=== PATIENT | male | born 1980 | race Caucasian/White ===

== ENCOUNTER → 2017-11-28 | Outpatient (CLI) | payer BC, OTHER ==
[~2017-11-28] MED LIST: ACETAMINOPHEN500 MG PO; IBUP400 PO; NEOPOLHCSU LEFTEAR
[2017-11-28 10:43] LABS: BASOPHILS ABSOLUTE AUTO 0.03 K/mm3 (0.00-0.23); BASOPHILS PERCENT AUTO 0 % (0-2); EOSINOPHILS PERCENT AUTO 3 % (0-6); Hematocrit 41.5 % (37.0-53.0); IMMATURE GRAN ABSOLUTE AUTO 0.02 K/mm3 (0.00-0.10); IMMATURE GRAN PERCENT AUTO 0 % (0-1); LYMPHOCYTES ABSOLUTE AUTO 2.34 K/mm3 (0.84-5.20); LYMPHOCYTES PERCENT AUTO 30 % (21-46); MONOCYTES ABSOLUTE AUTO 0.52 K/mm3 (0.16-1.47); MONOCYTES PERCENT AUTO 7 % (4-13); Mean Corpuscular HGB Conc 33.7 g/dL (31.5-36.5); Mean Corpuscular Volume 89 fL (80-100); Mean Platelet Volume 10.5 fL (9.1-12.4); NEUTROPHILS ABSOLUTE AUTO 4.68 K/mm3 (1.96-9.15); NEUTROPHILS PERCENT AUTO 60 % (41-73); Platelet Count 241 K/mm3 (150-400); Red Blood Cell Count 4.67 M/mm3 (4.30-5.90); White Blood Cell Count 7.79 K/mm3 (4.00-11.30)
[2017-11-28 11:15] LABS: Alanine Aminotransfer (ALT/SGP 31 U/L (12-78); Albumin, Blood 4.1 g/dL (3.4-5.0); Albumin/Globulin Ratio 1.2 (0.8-1.8); Alk Phos 56 U/L (40-126); Anion Gap 7 mmol/L (6-16); Aspartate Aminotrans (AST/SGOT 23 U/L (12-37); Bilirubin, Total 0.6 mg/dL (0.1-1.0); Blood Urea Nitrogen 13 mg/dL (8-24); Bun/Creatinine Ratio 14.9 (12.0-20.0); CO2, Blood 26 mmol/L (21-32); Calcium, Blood 8.7 mg/dL (8.5-10.1); Chloride, Blood 103 mmol/L (98-108); Creatinine, Blood 0.87 mg/dL (0.60-1.20); Globulin, Blood 3.5 g/dL (2.2-4.0); Glomerular Filtration Rate >60 (60-); Glucose, Blood 102 mg/dL (70-99); Potassium, Blood 4.3 mmol/L (3.5-5.5); Sodium, Blood 136 mmol/L (136-145); Total Protein, Blood 7.6 g/dL (6.4-8.2)
== END | disposition home or self-care (01) ==
LOC: LAB EV 10:40 → LAB SHORT 10:40
PROVIDERS: Physician Assistant Medical
DX: R10.84 Generalized abdominal pain (principal)
CPT/HCPCS: 80053; 85025

== ENCOUNTER 2018-07-17 06:08 | Day surgery (SDC) | payer OTHER, BC ==
[~2018-07-17] VITALS: Ht 172.7 cm; Wt 70.1 kg
[~2018-07-17 06:08] MED LIST changes: +CRUTCH4 XX; +IBUP100S; +Percocet 5-3251 EACH PO
--- NOTE | 2018-07-17 07:04 | NUR ---
History, Chart, Medications and Allergies reviewed before start of procedure. Patient States Post-Procedure ride home has been arranged.
[2018-07-17] MEDS ORDERED: IBUP600 PO (07:06)
--- NOTE | 2018-07-17 08:13 | NUR ---
07/17/18 0813 Noemi Adame ALL COUNTS CORRECT.
--- NOTE | 2018-07-17 09:32 | NUR ---
"DAY SURGERY RN | DISCHARGED Patient steady on feet. Discharge instructions given. RX given to patient. VSS. A/O. Denies pain and nausea. Eating crackers and drinking water without difficulty. Patient taken in wheelchair to front entrance by volunteer. is ride home. All belonings returned to patient."
== END 2018-07-17 22:38 | disposition home or self-care (01) ==
LOC: ORSCMMR 06:08 → ORD 07:30 → ORSCMMR 07:30
PROVIDERS: Orthopaedic Surgery
PROC: 0QPH04Z Removal of Internal Fixation Device from Left Tibia, Open Approach (ICD-10-PCS; principal; 2018-07-17 07:30)
DX: S82.142D Displaced bicondylar fracture of left tibia, subsequent encounter for closed fracture with routine healing (principal); F17.210 Nicotine dependence, cigarettes, uncomplicated
CPT/HCPCS: J0690; J1100; J1885; J2250; J2405; J3010; J7120

== ENCOUNTER 2020-02-25 15:13 | Inpatient (IN) | payer BC ==
[~2020-02-25] VITALS: Ht 175.3 cm; Wt 66.6 kg
[~2020-02-25 15:13] MED LIST changes: -HUMALOG KW100 UNIT/1 SC; -SEMGLEE PE100 UNIT/1 SC
[2020-02-25 15:35] LABS: Calcium, Ionized (POC) 1.11 mmol/L (1.10-1.46); Chloride (POC) 109 mmol/L (98-108); Creatinine (POC) 0.6 mg/dL (0.8-1.3); Glucose (ISTAT POC) 329 mg/dL (70-99); Hemoglobin (POC) 16.7 g/dL (13.5-17.5); Potassium (POC) 5.7 mmol/L (3.5-5.5); Sodium (POC) 136 mmol/L (135-148); Total CO2 (POC) 12 mmol/L (21-32)
[2020-02-25 15:43] LABS: Source, Urine Clean Catch
[2020-02-25 15:46] LABS: Base Excess Venous -21.1 mmol/L; Bicarbonate Venous 10.9 mmol/L (24.0-30.0); PCO2 Venous 27.2 mmHg (38-42); PO2 Venous 102 mmHg (38-42)
[2020-02-25 15:51] LABS: Appearance, Urine Clear (Clear); Bilirubin, Urine Neg (Neg); Blood, Urine 2+ (Neg); Glucose Qualitative, Urine 4+ (Neg); Ketones, Urine 4+ (Neg); Leukocyte Esterase, Urine Neg (Neg); Nitrite, Urine Neg (Neg); Protein, Urine 3+ (Neg); Specific Gravity, Urine 1.025 (1.003-1.022); Urobilinogen, Urine NORM (Normal)
[2020-02-25 15:52] LABS: BASOPHILS ABSOLUTE AUTO 0.03 K/mm3 (0.00-0.23); BASOPHILS PERCENT AUTO 0 % (0-2); EOSINOPHILS PERCENT AUTO 0 % (0-6); Hematocrit 49.4 % (37.0-53.0); Hemoglobin 15.7 g/dL (13.5-17.5); IMMATURE GRAN ABSOLUTE AUTO 0.05 K/mm3 (0.00-0.10); IMMATURE GRAN PERCENT AUTO 1 % (0-1); LYMPHOCYTES ABSOLUTE AUTO 1.09 K/mm3 (0.84-5.20); LYMPHOCYTES PERCENT AUTO 11 % (21-46); MONOCYTES ABSOLUTE AUTO 0.46 K/mm3 (0.16-1.47); MONOCYTES PERCENT AUTO 5 % (4-13); Mean Corpuscular HGB 29.8 pg (26.0-34.0); Mean Corpuscular HGB Conc 31.8 g/dL (31.5-36.5); Mean Corpuscular Volume 94 fL (80-100); Mean Platelet Volume 11.3 fL (9.1-12.4); NEUTROPHILS ABSOLUTE AUTO 7.98 K/mm3 (1.96-9.15); NEUTROPHILS PERCENT AUTO 83 % (41-73); Platelet Count 271 K/mm3 (150-400); RDW Coefficient Variation 12.5 % (11.7-14.2); RDW Standard Deviation 43.3 fL (35.1-46.3); Red Blood Cell Count 5.26 M/mm3 (4.30-5.90); White Blood Cell Count 9.61 K/mm3 (4.00-11.30)
[2020-02-25 16:09] LABS: Color, Urine Pale Yellow (P-Yellow)
[2020-02-25 16:13] LABS: White Blood Cells, Urine 0-2 /hpf (0-5)
[2020-02-25 16:14] LABS: Bacteria Few /hpf; Red Blood Cells, Urine 0-2 /hpf (0-2); Squamous Epithelial Cells Few /hpf (Few)
[2020-02-25 17:19] LABS: Alanine Aminotransfer (ALT/SGP 31 U/L (12-78); Albumin, Blood 4.3 g/dL (3.4-5.0); Alk Phos 74 U/L (50-136); Anion Gap 20 mmol/L (6-16); Aspartate Aminotrans (AST/SGOT 13 U/L (12-37); Bilirubin, Total 0.4 mg/dL (0.1-1.0); Blood Urea Nitrogen 15 mg/dL (8-24); Bun/Creatinine Ratio 22.9 (12.0-20.0); CO2, Blood 11 mmol/L (21-32); Chloride, Blood 109 mmol/L (98-108); Creatinine, Blood 0.66 mg/dL (0.60-1.20); Globulin, Blood 4.3 g/dL (2.2-4.0); Glomerular Filtration Rate >60 (60-); Glucose, Blood 289 mg/dL (70-99); Magnesium, Blood 1.9 mg/dL (1.6-2.4); Potassium, Blood 4.3 mmol/L (3.5-5.5); Sodium, Blood 140 mmol/L (136-145); Total Protein, Blood 8.6 g/dL (6.4-8.2)
[2020-02-25 17:39] LABS: Beta-hydroxybutyrate 82.6 mg/dL (0.2-2.8)
[2020-02-25 20:19] LABS: Anion Gap 12 mmol/L (6-16); Blood Urea Nitrogen 14 mg/dL (8-24); Bun/Creatinine Ratio 22.7 (12.0-20.0); CO2, Blood 19 mmol/L (21-32); Calcium, Blood 7.4 mg/dL (8.5-10.1); Chloride, Blood 113 mmol/L (98-108); Creatinine, Blood 0.62 mg/dL (0.60-1.20); Glomerular Filtration Rate >60 (60-); Glucose, Blood 210 mg/dL (70-99); Potassium, Blood 3.8 mmol/L (3.5-5.5); Sodium, Blood 144 mmol/L (136-145)
[2020-02-26 03:39] LABS: Anion Gap 6 mmol/L (6-16); Blood Urea Nitrogen 12 mg/dL (8-24); Bun/Creatinine Ratio 20.5 (12.0-20.0); CO2, Blood 24 mmol/L (21-32); Calcium, Blood 7.6 mg/dL (8.5-10.1); Chloride, Blood 112 mmol/L (98-108); Creatinine, Blood 0.59 mg/dL (0.60-1.20); Glomerular Filtration Rate >60 (60-); Glucose, Blood 136 mg/dL (70-99); Potassium, Blood 3.2 mmol/L (3.5-5.5); Sodium, Blood 142 mmol/L (136-145)
[2020-02-27] MEDS ORDERED: SEMGLEE PE100 UNIT/1 SC (12:49)
[2020-02-27] MEDS ORDERED: HUMALOG KW100 UNIT/1 SC (12:52)
== END 2020-02-27 16:28 | disposition home or self-care (01) | DRG 639 ==
LOC: ER 15:13 → ICUW 15:14 → ICUE 15:14 → MEDS 02-26 15:55
PROVIDERS: Emergency Medicine; ADMIT Internal Medicine
DX: E11.10 Type 2 diabetes mellitus with ketoacidosis without coma (principal)
CPT/HCPCS: 36415; 71045; 80047; 80048; 80053; 81001; 82010; 82803; 82947; 83036; 83735; 85014; 85025; 93306; 96372; 96374; 99285-25; A9270-GY; G0378; J1650; J1815; J3480; J7030; J7042; J7120

== ENCOUNTER → 2020-02-25 | Outpatient (CLI) | payer BC ==
[~2020-02-25] MED LIST changes: +HUMALOG KW100 UNIT/1 SC; +IBUP600 PO; +SEMGLEE PE100 UNIT/1 SC
[2020-02-25 14:17] LABS: BASOPHILS ABSOLUTE AUTO 0.03 K/mm3 (0.00-0.23); BASOPHILS PERCENT AUTO 0 % (0-2); EOSINOPHILS PERCENT AUTO 0 % (0-6); Hematocrit 47.7 % (37.0-53.0); Hemoglobin 16.2 g/dL (13.5-17.5); IMMATURE GRAN ABSOLUTE AUTO 0.07 K/mm3 (0.00-0.10); IMMATURE GRAN PERCENT AUTO 1 % (0-1); LYMPHOCYTES ABSOLUTE AUTO 0.87 K/mm3 (0.84-5.20); LYMPHOCYTES PERCENT AUTO 11 % (21-46); MONOCYTES ABSOLUTE AUTO 0.44 K/mm3 (0.16-1.47); MONOCYTES PERCENT AUTO 6 % (4-13); Mean Corpuscular HGB 30.4 pg (26.0-34.0); Mean Corpuscular Volume 90 fL (80-100); Mean Platelet Volume 10.9 fL (9.1-12.4); NEUTROPHILS ABSOLUTE AUTO 6.59 K/mm3 (1.96-9.15); NEUTROPHILS PERCENT AUTO 82 % (41-73); Platelet Count 274 K/mm3 (150-400); RDW Coefficient Variation 12.8 % (11.7-14.2); RDW Standard Deviation 41.5 fL (35.1-46.3); Red Blood Cell Count 5.33 M/mm3 (4.30-5.90)
[2020-02-25 14:27] LABS: Alanine Aminotransfer (ALT/SGP 31 U/L (12-78); Albumin, Blood 4.1 g/dL (3.4-5.0); Albumin/Globulin Ratio 1.1 (0.8-1.8); Alk Phos 67 U/L (40-126); Anion Gap 26 mmol/L (6-16); Aspartate Aminotrans (AST/SGOT 17 U/L (12-37); Bilirubin, Total 0.4 mg/dL (0.1-1.0); Blood Urea Nitrogen 18 mg/dL (8-24); Bun/Creatinine Ratio 16.4 (12.0-20.0); CO2, Blood 11 mmol/L (21-32); Calcium, Blood 7.9 mg/dL (8.5-10.1); Chloride, Blood 101 mmol/L (98-108); Globulin, Blood 3.8 g/dL (2.2-4.0); Glomerular Filtration Rate >60 (60-); Glucose, Blood 362 mg/dL (70-99); Sodium, Blood 138 mmol/L (136-145); Total Protein, Blood 7.9 g/dL (6.4-8.2)
== END ==
LOC: LAB EV 14:13 → LAB SHORT 14:13
PROVIDERS: Chiropractor
DX: R81 Glycosuria (principal)
CPT/HCPCS: 80053; 83036; 83690; 85025

== ENCOUNTER 2021-06-24 11:31 | Inpatient (IN) | payer OTHER ==
[~2021-06-24] VITALS: Ht 175.3 cm; Wt 56.5 kg
[~2021-06-24 11:31] MED LIST changes: +HUMALOG KW100 UNIT/1 SC; +SEMGLEE PE100 UNIT/1 SC
[2021-06-24 12:14] LABS: BASOPHILS PERCENT AUTO 1 % (0-2); EOSINOPHILS PERCENT AUTO 0 % (0-6); Hemoglobin 17.5 g/dL (13.5-17.5); IMMATURE GRAN ABSOLUTE AUTO 0.33 K/mm3 (0.00-0.10); IMMATURE GRAN PERCENT AUTO 2 % (0-1); LYMPHOCYTES ABSOLUTE AUTO 1.58 K/mm3 (0.84-5.20); LYMPHOCYTES PERCENT AUTO 9 % (21-46); MONOCYTES ABSOLUTE AUTO 0.88 K/mm3 (0.16-1.47); MONOCYTES PERCENT AUTO 5 % (4-13); Mean Corpuscular HGB 30.4 pg (26.0-34.0); Mean Corpuscular HGB Conc 31.3 g/dL (31.5-36.5); Mean Corpuscular Volume 97 fL (80-100); Mean Platelet Volume 10.4 fL (9.1-12.4); NEUTROPHILS ABSOLUTE AUTO 15.75 K/mm3 (1.96-9.15); NEUTROPHILS PERCENT AUTO 85 % (41-73); Platelet Count 350 K/mm3 (150-400); RDW Standard Deviation 43.3 fL (35.1-46.3); Red Blood Cell Count 5.75 M/mm3 (4.30-5.90); White Blood Cell Count 18.64 K/mm3 (4.00-11.30)
[2021-06-24 12:19] LABS: Hematocrit 55.9 % (37.0-53.0)
[2021-06-24 12:20] LABS: Calcium, Ionized (POC) 1.19 mmol/L (1.10-1.46); Chloride (POC) 110 mmol/L (98-108); Creatinine (POC) 0.8 mg/dL (0.8-1.3); Glucose (ISTAT POC) 504 mg/dL (70-99); Hemoglobin (POC) 18.7 g/dL (13.5-17.5); Potassium (POC) 5.3 mmol/L (3.5-5.5); Sodium (POC) 138 mmol/L (135-148); Total CO2 (POC) 10 mmol/L (21-32)
[2021-06-24 12:51] LABS: Alanine Aminotransfer (ALT/SGP 70 U/L (12-78); Albumin, Blood 4.9 g/dL (3.4-5.0); Albumin/Globulin Ratio 1.1 (0.8-1.8); Alk Phos 80 U/L (50-136); Anion Gap 26 mmol/L (6-16); Aspartate Aminotrans (AST/SGOT 51 U/L (12-37); Bilirubin, Total 0.4 mg/dL (0.1-1.0); Blood Urea Nitrogen 22 mg/dL (8-24); Bun/Creatinine Ratio 27.9 (12.0-20.0); CO2, Blood 7 mmol/L (21-32); Calcium, Blood 9.3 mg/dL (8.5-10.1); Chloride, Blood 102 mmol/L (98-108); Creatinine, Blood 0.79 mg/dL (0.60-1.20); Globulin, Blood 4.4 g/dL (2.2-4.0); Glomerular Filtration Rate >60 (60-); Glucose, Blood 490 mg/dL (70-99); Potassium, Blood 5.2 mmol/L (3.5-5.5); Sodium, Blood 135 mmol/L (136-145); Total Protein, Blood 9.3 g/dL (6.4-8.2)
[2021-06-24 14:16] LABS: Base Excess Venous -24.9 mmol/L; Bicarbonate Venous 9.1 mmol/L (24.0-30.0); PCO2 Venous 29.2 mmHg (38-42); PO2 Venous 170 mmHg (38-42)
[2021-06-24 14:18] LABS: pH Blood Venous 6.97 (7.34-7.37)
[2021-06-24 14:26] LABS: Magnesium, Blood 2.3 mg/dL (1.6-2.4)
[2021-06-24 14:40] LABS: Beta-hydroxybutyrate 114.4 mg/dL (0.2-2.8); Phosphorus, Blood 6.2 mg/dL (2.5-4.9)
--- NOTE | 2021-06-24 15:12 | NUR ---
Assumed care of pt upon arrival to ICU 15 from emergency department at 1412. Pt slid self from ED gurney to ICU bed. Pt and significant other, Avery, assisted with admit hx. Pt on room air. SpO2 90% or greater. SR per monitor. Pt nauseous. Insulin drip started at 4 units/hr.
--- NOTE | 2021-06-24 16:43 | NUR ---
INSULIN When interviewed about insulin use, pt's s/o states that insulin use does not follow a prescribed regimen. Pt, however, recites an insulin regimen for glargine that was provided to him by "Dr Schmidt in the ER". Patient and s/o state that there has been an inturruption in his insurance due to switching jobs that has led to interruption in insulin supply. Hgb A1C noted.
[2021-06-24 16:57] LABS: Anion Gap 17 mmol/L (6-16); Blood Urea Nitrogen 21 mg/dL (8-24); CO2, Blood 10 mmol/L (21-32); Calcium, Blood 7.6 mg/dL (8.5-10.1); Chloride, Blood 113 mmol/L (98-108); Creatinine, Blood 0.78 mg/dL (0.60-1.20); Glomerular Filtration Rate >60 (60-); Glucose, Blood 326 mg/dL (70-99); Sodium, Blood 140 mmol/L (136-145)
--- NOTE | 2021-06-24 17:46 | NUR ---
SUMMARY Neuro: Pt alert, oriented. Pleasant and cooperative with care. No longer lethargic. Answers questions. Follows commands. Verbalizes needs. PERRLA. Musc: Unremarkable Resp: Unremarkable Cardiac: SR per monitor, BP stable. Capillary refill less than 3 seconds. No edema. 2+ radial, pedal, posttibial pulses. GI: Hypoactive BT. Abd soft, nontender. Nauseous on arrival, no vomiting. Nausea has resolved at this time and pt is tolerating water without difficulty. : Voids into urinal. Needs urinalysis sent. Skin: Overall C/D/I. Flushed. Poor turgor Psychosocial: Unremarkable. Visiting with partner at bedside.
[2021-06-24 18:29] LABS: Source, Urine Clean Catch
[2021-06-24 18:35] LABS: Appearance, Urine Clear (Clear); Bilirubin, Urine Neg (Neg); Blood, Urine 3+ (Neg); Color, Urine Yellow (P-Yellow); Glucose Qualitative, Urine 4+ (Neg); Ketones, Urine 4+ (Neg); Leukocyte Esterase, Urine Neg (Neg); Nitrite, Urine Neg (Neg); Protein, Urine 3+ (Neg); Specific Gravity, Urine 1.025 (1.003-1.022); Urobilinogen, Urine NORM (Normal)
[2021-06-24 19:05] LABS: Hyaline Casts 0-2 /lpf (0-2)
[2021-06-24 19:06] LABS: Bacteria Mod /hpf; Red Blood Cells, Urine Rare /hpf (0-2); Squamous Epithelial Cells Not Seen /hpf (Few); U Amphetamine Screen Not Detected; U Barbituate Screen Not Detected; U Benzodiazapine Screen Not Detected; U Buprenorphine Screen Not Detected; U Cannabinoids Screen DETECTED; U Cocaine Screen Not Detected; U Methadone Screen Not Detected; U Methamphetamine Screen Not Detected; U Opiates Screen Not Detected; U Oxycodone Screen Not Detected; U Phencyclidine Screen Not Detected; White Blood Cells, Urine 0-2 /hpf (0-5)
[2021-06-24 19:07] LABS: U Propoxyphene Screen Not Detected
[2021-06-24 20:39] LABS: Anion Gap 10 mmol/L (6-16); Blood Urea Nitrogen 16 mg/dL (8-24); Bun/Creatinine Ratio 23.7 (12.0-20.0); CO2, Blood 18 mmol/L (21-32); Calcium, Blood 7.8 mg/dL (8.5-10.1); Chloride, Blood 107 mmol/L (98-108); Creatinine, Blood 0.68 mg/dL (0.60-1.20); Glomerular Filtration Rate >60 (60-); Glucose, Blood 235 mg/dL (70-99); Potassium, Blood 4.1 mmol/L (3.5-5.5); Sodium, Blood 135 mmol/L (136-145)
[2021-06-25 00:46] LABS: Anion Gap 6 mmol/L (6-16); Blood Urea Nitrogen 15 mg/dL (8-24); Bun/Creatinine Ratio 22.6 (12.0-20.0); CO2, Blood 21 mmol/L (21-32); Calcium, Blood 7.8 mg/dL (8.5-10.1); Chloride, Blood 111 mmol/L (98-108); Creatinine, Blood 0.66 mg/dL (0.60-1.20); Glomerular Filtration Rate >60 (60-); Glucose, Blood 162 mg/dL (70-99); Potassium, Blood 3.7 mmol/L (3.5-5.5); Sodium, Blood 138 mmol/L (136-145)
[2021-06-25 04:41] LABS: BASOPHILS ABSOLUTE AUTO 0.02 K/mm3 (0.00-0.23); BASOPHILS PERCENT AUTO 0 % (0-2); EOSINOPHILS ABSOLUTE AUTO 0.04 K/mm3 (0.00-0.68); EOSINOPHILS PERCENT AUTO 0 % (0-6); Hematocrit 39.1 % (37.0-53.0); Hemoglobin 13.1 g/dL (13.5-17.5); IMMATURE GRAN ABSOLUTE AUTO 0.08 K/mm3 (0.00-0.10); IMMATURE GRAN PERCENT AUTO 1 % (0-1); LYMPHOCYTES ABSOLUTE AUTO 1.85 K/mm3 (0.84-5.20); LYMPHOCYTES PERCENT AUTO 16 % (21-46); MONOCYTES ABSOLUTE AUTO 0.93 K/mm3 (0.16-1.47); MONOCYTES PERCENT AUTO 8 % (4-13); Mean Corpuscular HGB 30.7 pg (26.0-34.0); Mean Corpuscular HGB Conc 33.5 g/dL (31.5-36.5); Mean Corpuscular Volume 92 fL (80-100); Mean Platelet Volume 10.2 fL (9.1-12.4); NEUTROPHILS ABSOLUTE AUTO 8.87 K/mm3 (1.96-9.15); NEUTROPHILS PERCENT AUTO 75 % (41-73); Platelet Count 239 K/mm3 (150-400); RDW Coefficient Variation 12.3 % (11.7-14.2); RDW Standard Deviation 41.1 fL (35.1-46.3); Red Blood Cell Count 4.27 M/mm3 (4.30-5.90); White Blood Cell Count 11.79 K/mm3 (4.00-11.30)
[2021-06-25 05:04] LABS: Anion Gap 9 mmol/L (6-16); Blood Urea Nitrogen 13 mg/dL (8-24); Bun/Creatinine Ratio 20.6 (12.0-20.0); CO2, Blood 19 mmol/L (21-32); Calcium, Blood 7.9 mg/dL (8.5-10.1); Chloride, Blood 110 mmol/L (98-108); Creatinine, Blood 0.63 mg/dL (0.60-1.20); Glomerular Filtration Rate >60 (60-); Glucose, Blood 156 mg/dL (70-99); Potassium, Blood 3.7 mmol/L (3.5-5.5); Sodium, Blood 138 mmol/L (136-145)
--- NOTE | 2021-06-25 05:52 | NUR ---
Patient alert oriented and cooperative throughout shift. Q1 blood sugar checks throughout the night, insulin drip titrated according to protocol. Labs Q4. At midnight, C02 notmal and anion gap closed; Dr. Chambers notified, no changes made at this time.
--- NOTE | 2021-06-25 07:20 | NUR ---
PATIENT SLEEPING, REPORT GIVEN FROM CHAPIS SILVA PM, WAKES EASILY AND THEN BACK TO SLEEP, ORIENTED, CALL LIGHT WITH IN REACH, PATIENT WANTING TO TRY TO GET MORE SLEEP AND EAT, PATIENT EDUCATED FOR THE NEED FOR THE DR TO ROUND BEFORE FOOD, PLEASANT TO CARE, WCPANCHO
--- NOTE | 2021-06-25 10:58 | NUR ---
Pt. is awake and in bed. SO is present. 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 Establish rapport. Pt. had been unsettled by the short term effcts of meds when he first came to hospital, but currently displays evidence of decreased pain. Prayed with Pt. and spouse. Pt. verbalized gratitude and great hope for the health care he has received, and the spiritual care visit.
--- NOTE | 2021-06-25 14:38 | NUR ---
REPORTED TO DR SAGASTUME BS 375, PATIENTS SS CHANGED TO HIGH COVERAGE, NO OTHER NEW ORDERS
--- NOTE | 2021-06-25 18:13 | NUR ---
LAERT AND ORIENTED, NO DEFICITS, NO ETOH W/D SYMPTOMS, MAKES NEEDS KNOWN, INDEPENDANT IN ROOM, STEADY GAIT. SHOWERED, AMBULATING IN ROOM.DISCONTINUED INSULIN GTT TODAY ON A HIGH SS COVERAGE, LS CTA, SATS 98% RA, DENIES CP, SBP 110-140S, VOID PER BSU, CALL LIGHT WITH IN REACH, WILL RELAY TO PM RN, WCTM
--- NOTE | 2021-06-25 20:59 | NUR ---
ASSUMED CARE AT 1900 PT LAYING IN BED WATCHING TV AND CONVERSATING WITH S.O. AT BEDSIDE. PT IS ALET/ORIENTED X4 AND ABLE TO MAKE HIS NEEDS KNOWN. VSS. PT REQUESTING FOOD AND TOLERATING WELL. EVENING CBG 331; SHORT ACTING HSS AND LONG ACTING INSULIN GIVEN. PT AMBULATES INDEPENDENTLY AND SAFELY. SEE SHIFT ASSESSMENT FOR FULL ASSESSMENT.
--- NOTE | 2021-06-25 22:18 | NUR ---
TRANSFER TO [facility] 357 REPORT GIVEN TO ROXANN AT 7252. PT TRANSFERED TO [facility] 357 AT 2210 VIA WHEELCHAIR. BELONGINGS SENT WITH HIM IN BAGS.
--- NOTE | 2021-06-25 22:34 | NUR ---
RECEIVED PATIENT TO UNIT ABOUT 2215. ALERT AND ORIENTED X'S 4, NO ACUTE DISTRESS NOTED. RESPIRATIONS EVEN AND UNLABORED. DENIES CP OR SOB. ORIENTED PATIENT TO ROOM AND CALL [place]. SAFETY MAINTAINED, CALL [place] IN REACH.
--- NOTE | 2021-06-26 05:23 | NUR ---
SLEPT WELL THROUGH NIGHT. DENIED PAIN OR DISCOMFORT. RESPITATIONS EVEN AND UNLABORED. NO ACUTE DISTRESS NOTED. SAFETY MAINTAINED, CALL [place] IN REACH
[2021-06-26 06:27] LABS: BASOPHILS ABSOLUTE AUTO 0.02 K/mm3 (0.00-0.23); BASOPHILS PERCENT AUTO 0 % (0-2); EOSINOPHILS ABSOLUTE AUTO 0.05 K/mm3 (0.00-0.68); EOSINOPHILS PERCENT AUTO 1 % (0-6); Hematocrit 37.5 % (37.0-53.0); Hemoglobin 12.8 g/dL (13.5-17.5); IMMATURE GRAN ABSOLUTE AUTO 0.03 K/mm3 (0.00-0.10); IMMATURE GRAN PERCENT AUTO 1 % (0-1); LYMPHOCYTES ABSOLUTE AUTO 1.93 K/mm3 (0.84-5.20); LYMPHOCYTES PERCENT AUTO 37 % (21-46); MONOCYTES ABSOLUTE AUTO 0.41 K/mm3 (0.16-1.47); MONOCYTES PERCENT AUTO 8 % (4-13); Mean Corpuscular HGB 30.8 pg (26.0-34.0); Mean Corpuscular HGB Conc 34.1 g/dL (31.5-36.5); Mean Corpuscular Volume 90 fL (80-100); Mean Platelet Volume 10.4 fL (9.1-12.4); NEUTROPHILS ABSOLUTE AUTO 2.77 K/mm3 (1.96-9.15); NEUTROPHILS PERCENT AUTO 53 % (41-73); Platelet Count 205 K/mm3 (150-400); RDW Coefficient Variation 12.4 % (11.7-14.2); RDW Standard Deviation 40.9 fL (35.1-46.3); Red Blood Cell Count 4.16 M/mm3 (4.30-5.90); White Blood Cell Count 5.21 K/mm3 (4.00-11.30)
[2021-06-26 06:53] LABS: Alanine Aminotransfer (ALT/SGP 43 U/L (12-78); Alk Phos 46 U/L (50-136); Anion Gap 4 mmol/L (6-16); Aspartate Aminotrans (AST/SGOT 38 U/L (12-37); Bilirubin, Total 0.5 mg/dL (0.1-1.0); Blood Urea Nitrogen 13 mg/dL (8-24); Bun/Creatinine Ratio 23.8 (12.0-20.0); CO2, Blood 32 mmol/L (21-32); Calcium, Blood 7.8 mg/dL (8.5-10.1); Chloride, Blood 106 mmol/L (98-108); Creatinine, Blood 0.55 mg/dL (0.60-1.20); Globulin, Blood 2.9 g/dL (2.2-4.0); Glomerular Filtration Rate >60 (60-); Glucose, Blood 94 mg/dL (70-99); Potassium, Blood 3.9 mmol/L (3.5-5.5); Sodium, Blood 142 mmol/L (136-145)
[2021-06-26 06:55] LABS: Total Protein, Blood 5.9 g/dL (6.4-8.2)
--- NOTE | 2021-06-26 18:29 | NUR ---
PATIENT RESTING COMFORTABLY IN BED WITH GF AT BEDSIDE. EDUCATED PATIENT ON NEW INSULIN ORDERS. ANSWERED ALL QUESTIONS. PATIENT HAS NO COMPLAINTS AND DENIES ANY PAIN.
--- NOTE | 2021-06-27 07:41 | NUR ---
SHIFT SUMMARY PT A/O X4, INDEPENDENT IN ROOM, BG AC/HS CONTINUED, HS BS >200, HS SNACK GIVEN AND MEDICATED PER MAR, DENIED ANY PAIN , NO ACUTE DISTRESS THIS SHIFT.
--- NOTE | 2021-06-27 14:00 | NUR ---
DC SUMMARY PT AxOx4. PLEASANT AND COOPERATIVE WITH CARE. PT DISCHARGING TO HOME. DC INSTRUCTIONS GIVEN INCLUDING DC MEDICATION LIST AND DIRECTIONS FOR INSULIN USE, PATIENT EDUCATION PROVIDED AND FOLLOW UP APPOINTMENT REMINDERS. PT VERBALIZES UNDERSTANDING. DENIES ANY FURTHER QUESTIONS AT THIS TIME. VITALS REVIEWED. PT ESCORTED OUT BY VOLUNTEER.
--- NOTE | 2021-06-28 09:20 | NUR ---
Per Dr. Avila, patient appropriate for discharge on Monday06/27/2021. I scheduled a hospital follow up for him on Tuesday, June 29, 2021 at 04:[address] Piotr Zapata. Patient agreeable to follow up appointment. No needs anticipated, patient denied barriers.
== END 2021-06-27 14:09 | disposition home or self-care (01) | DRG 638 ==
LOC: ER 11:31 → ICUW 13:59 → PCU 13:59 → MEDS 13:59 → ICUW 14:25 → MEDS 06-25 22:13
PROVIDERS: Internal Medicine; Physician Assistant; ADMIT Family Medicine
DX: E10.10 Type 1 diabetes mellitus with ketoacidosis without coma (principal); E87.1 Hypo-osmolality and hyponatremia; Z28.21 Immunization not carried out because of patient refusal; K21.9 Gastro-esophageal reflux disease without esophagitis; R63.4 Abnormal weight loss; F17.220 Nicotine dependence, chewing tobacco, uncomplicated; F10.129 Alcohol abuse with intoxication, unspecified; Z71.6 Tobacco abuse counseling; Z71.51 Drug abuse counseling and surveillance of drug abuser; Z68.25 Body mass index [BMI] 25.0-25.9, adult; Z91.14 Patient's other noncompliance with medication regimen; Z79.4 Long term (current) use of insulin; Z98.890 Other specified postprocedural states; Z79.899 Other long term (current) drug therapy
CPT/HCPCS: 36415; 71046; 80047; 80048; 80053; 81001; 82010; 82803; 82947; 83036; 83735; 84100; 85014; 85025; 87086; 93005; 93010; 96374; 99285-25; A9270; C1751; C9113; J1650; J1815; J2405; J3480; J7030; J7042; J7120

== ENCOUNTER 2023-02-27 08:00 | Observation (INO) | payer OTHER ==
[~2023-02-27] VITALS: Ht 175.3 cm; Wt 69.0 kg
[2023-02-27 08:30] LABS: BASOPHILS ABSOLUTE AUTO 0.12 K/mm3 (0.00-0.23); BASOPHILS PERCENT AUTO 0 % (0-2); Base Excess Venous -27.3 mmol/L; Bicarbonate Venous 7.9 mmol/L (24.0-30.0); EOSINOPHILS ABSOLUTE AUTO 0.02 K/mm3 (0.00-0.68); EOSINOPHILS PERCENT AUTO 0 % (0-6); Hematocrit 49.9 % (37.0-53.0); Hemoglobin 15.9 g/dL (13.5-17.5); IMMATURE GRAN ABSOLUTE AUTO 0.57 K/mm3 (0.00-0.10); IMMATURE GRAN PERCENT AUTO 2 % (0-1); LYMPHOCYTES ABSOLUTE AUTO 2.14 K/mm3 (0.84-5.20); LYMPHOCYTES PERCENT AUTO 7 % (21-46); MONOCYTES ABSOLUTE AUTO 1.83 K/mm3 (0.16-1.47); MONOCYTES PERCENT AUTO 6 % (4-13); Mean Corpuscular HGB 31.4 pg (26.0-34.0); Mean Corpuscular HGB Conc 31.9 g/dL (31.5-36.5); Mean Corpuscular Volume 98 fL (80-100); Mean Platelet Volume 10.7 fL (9.1-12.4); NEUTROPHILS ABSOLUTE AUTO 25.11 K/mm3 (1.96-9.15); NEUTROPHILS PERCENT AUTO 84 % (41-73); PCO2 Venous 19.5 mmHg (38-42); Platelet Count 330 K/mm3 (150-400); RDW Standard Deviation 43.7 fL (35.1-46.3); Red Blood Cell Count 5.07 M/mm3 (4.30-5.90); White Blood Cell Count 29.79 K/mm3 (4.00-11.30); pH Blood Venous 6.96 (7.34-7.37)
[2023-02-27 08:46] LABS: Source, Urine Clean Catch
[2023-02-27 08:51] LABS: Appearance, Urine Clear (Clear); Bilirubin, Urine Neg (Neg); Blood, Urine 3+ (Neg); Glucose Qualitative, Urine 4+ (Neg); Ketones, Urine 4+ (Neg); Leukocyte Esterase, Urine Neg (Neg); Nitrite, Urine Neg (Neg); Protein, Urine 3+ (Neg); Specific Gravity, Urine 1.025 (1.003-1.022); Urobilinogen, Urine NORM (Normal)
[2023-02-27 09:00] LABS: Color, Urine Pale Yellow (P-Yellow)
[2023-02-27 09:01] LABS: Bacteria Not Seen /hpf; Red Blood Cells, Urine 0-2 /hpf (0-2); Squamous Epithelial Cells Not Seen /hpf (Few); White Blood Cells, Urine Not Seen /hpf (0-5)
[2023-02-27 09:22] LABS: Albumin, Blood 4.6 g/dL (3.4-5.0); Albumin/Globulin Ratio 1.1 (0.8-1.8); Bilirubin, Total 0.5 mg/dL (0.1-1.0); Bun/Creatinine Ratio 21.4 (12.0-20.0); Calcium, Blood 8.3 mg/dL (8.5-10.1); Creatinine, Blood 1.03 mg/dL (0.60-1.20); Globulin, Blood 4.1 g/dL (2.2-4.0); Potassium, Blood 5.9 mmol/L (3.5-5.5); Total Protein, Blood 8.7 g/dL (6.4-8.2)
[2023-02-27 11:00] LABS: Base Excess Venous -28.6 mmol/L; Bicarbonate Venous 6.9 mmol/L (24.0-30.0); PCO2 Venous 18.8 mmHg (38-42); pH Blood Venous 6.92 (7.34-7.37)
[2023-02-27 11:34] LABS: Bun/Creatinine Ratio 21.7 (12.0-20.0); Calcium, Blood 7.4 mg/dL (8.5-10.1); Creatinine, Blood 0.97 mg/dL (0.60-1.20); Potassium, Blood 6.2 mmol/L (3.5-5.5)
[2023-02-27 12:40] LABS: Glucose, Blood 430 mg/dL (70-99)
[2023-02-27 13:07] LABS: Base Excess Venous -26.5 mmol/L; PCO2 Venous 18.8 mmHg (38-42); pH Blood Venous 7.01 (7.34-7.37)
[2023-02-27 13:39] LABS: Bun/Creatinine Ratio 17.9 (12.0-20.0); Calcium, Blood 7.4 mg/dL (8.5-10.1); Creatinine, Blood 1.06 mg/dL (0.60-1.20); Potassium, Blood 5.1 mmol/L (3.5-5.5)
[2023-02-27 16:04] LABS: Bun/Creatinine Ratio 18.6 (12.0-20.0); Calcium, Blood 7.4 mg/dL (8.5-10.1); Creatinine, Blood 0.91 mg/dL (0.60-1.20)
[2023-02-27 19:26] LABS: Bun/Creatinine Ratio 16.3 (12.0-20.0); Calcium, Blood 7.8 mg/dL (8.5-10.1); Creatinine, Blood 0.8 mg/dL (0.60-1.20); Potassium, Blood 4.4 mmol/L (3.5-5.5)
[2023-02-28 00:11] LABS: Bun/Creatinine Ratio 12.3 (12.0-20.0); Calcium, Blood 7.8 mg/dL (8.5-10.1); Creatinine, Blood 0.73 mg/dL (0.60-1.20); Potassium, Blood 3.8 mmol/L (3.5-5.5)
[2023-02-28 05:35] LABS: Bun/Creatinine Ratio 11.4 (12.0-20.0); Calcium, Blood 8.2 mg/dL (8.5-10.1); Creatinine, Blood 0.7 mg/dL (0.60-1.20); Potassium, Blood 3.7 mmol/L (3.5-5.5)
[2023-02-28 07:59] LABS: Bun/Creatinine Ratio 11.5 (12.0-20.0); Calcium, Blood 8.2 mg/dL (8.5-10.1); Creatinine, Blood 0.61 mg/dL (0.60-1.20); Potassium, Blood 3.8 mmol/L (3.5-5.5)
[2023-02-28 09:52] VITALS: BP 116/65
[2023-02-28] MEDS ORDERED: ONDA4ODT MM (15:20)
--- NOTE | 2023-02-28 15:57 | NUR ---
DISCHARGE NOTE PT DISCHARGED TO HOME, PICKED UP BY HIS . IV'S REMOVED. DISCHARGE EDUCATION AND INFORMATION PROVIDED TO THE PT. PERSONAL BELONGINGS RETURNED.
== END 2023-02-28 15:57 | disposition home or self-care (01) ==
LOC: ER 08:00 → ICUE 08:01 → ER 08:01 → ERHOLD 08:01 → MEDS 02-28 09:40
PROVIDERS: Emergency Medicine; ADMIT Internal Medicine
DX: E10.10 Type 1 diabetes mellitus with ketoacidosis without coma (principal); E87.1 Hypo-osmolality and hyponatremia; E86.0 Dehydration; R65.10 Systemic inflammatory response syndrome (SIRS) of non-infectious origin without acute organ dysfunction; D72.829 Elevated white blood cell count, unspecified
CPT/HCPCS: 36415; 80048; 80053; 81001; 82803; 82947; 83036; 85025; 96361; 96372; 96374; 96375; 96376; 99285-25; A9270; G0378; J1650; J1815; J1885; J2405; J2765; J7030; J7040; J7042

== ENCOUNTER → 2023-05-09 | Outpatient (CLI) | payer OTHER ==
[~2023-05-09] MED LIST changes: +ONDA4ODT MM
== END ==
LOC: PLD 07:34 → LAB SHORT 07:34
DX: D48.5 Neoplasm of uncertain behavior of skin (principal)
CPT/HCPCS: 88312